=== PATIENT | female | born 1945 | race Caucasian/White ===

== ENCOUNTER 2023-12-19 15:27 | Emergency (ER) | payer OTHER ==
[~2023-12-19] VITALS: Ht 157.5 cm; Wt 91.0 kg
[2023-12-19 16:16] LABS: BASOPHILS % 0.6 % (0.0-2.0); DIFFERENTIAL COMMENT 0; EOSINOPHILS % 0.3 % (0.0-5.0); HEMATOCRIT. 35.8 % (36.0-48.0); HEMOGLOBIN. 11.1 g/dL (12.0-16.0); LYMPHOCYTES % 14.6 % (20.0-50.0); MEAN CORPUSCULAR HEMOGLOBIN 23.3 pg (28.0-32.0); MEAN CORPUSCULAR HGB CONC 31.1 g/dL (31.0-37.0); MEAN CORPUSCULAR VOLUME 74.9 fL (81.0-99.0); NEUTROPHILS % 78.5 % (40.0-76.0); PLATELET 377 x1000/uL (130-400); RED BLOOD CELL COUNT 4.78 mill/uL (4.2-5.4); RED CELL DISTRIBUTION WIDTH 20.1 % (11.6-14.6)
[2023-12-19 16:29] LABS: CHLORIDE 110 mEq/L (98-107); POTASSIUM 3.9 mEq/L (3.5-5.1); SODIUM 142 mEq/L (136-145)
[2023-12-19 16:30] LABS: CARBON DIOXIDE 23 mEq/L (21-32); D-DIMER 1.02 mg/L FEU (<0.50)
[2023-12-19 16:35] LABS: GLUCOSE 100 mg/dL (70-105); UREA NITROGEN BLOOD 15 mg/dL (9-23)
[2023-12-19 16:37] LABS: TROPONIN I HIGH SENSITIVITY < 4 ng/L (3.0-34)
[2023-12-19 18:36] VITALS: TEMP 36.94740
[2023-12-19 19:28] LABS: TROPONIN I HIGH SENSITIVITY 4 ng/L (3.0-34)
[2023-12-19 21:33] VITALS: PULSE 76; RESP 18; O2SAT 97
[2023-12-19] MEDS: ALBUTEROL (0.083%) 2.5MG/3ML NEB HHN ONE (21:33)
[2023-12-19] MEDS ORDERED: MECLIZINE 25MG TABLET PO ONE (22:45)
[2023-12-19] MEDS ORDERED: MECL-299 MT (23:26)
[2023-12-19] MEDS ORDERED: IOHEXOL-350 100 ML BOTTLE ONE (23:35)
[2023-12-19] MEDS: MECLIZINE 12.5MG TABLET PO NR (23:45)
[2023-12-20 00:20] VITALS: BP 135/66; PULSE 78; RESP 18; O2SAT 98
== END 2023-12-20 00:45 | disposition home or self-care (01) ==
LOC: ER 15:27
DX: R42 Dizziness and giddiness (principal); R06.02 Shortness of breath; I10 Essential (primary) hypertension; Z98.890 Other specified postprocedural states
CPT/HCPCS: 99285; 71275; 71045; 80048; 83880; 85025; 85379; 85610; 85730; 84484; 36415; 70450; 94640; 93005; Q9967; J8597